=== PATIENT | male | born 2005 | race Caucasian/White ===

== ENCOUNTER 2025-02-18 16:57 | Emergency (ER) | payer BC, SELFPAY ==
[2025-02-18 17:00] VITALS: BP 123/80
--- NOTE | 2025-02-18 18:51 | ED.GENMED ---
History of Present Illness
General
Chief Complaint: Suicidal Ideation
Time Seen by Provider: 02/18/25 17:42
History of Present Illness
History of Present Illness:
19-year-old male without known psychiatric disease presenting to the emergency department for SI. Patient reports that he has been having suicidal ideations for the past 9 months. Denies any specific plan. Notes that he went to go see a doctor
prior to arrival, sent to the ER for further assessment given admission of SI. Denies any significant social stressors. Reports history of drinking coil cleaner in the past. Denies acute medical complaint such as chest pain, difficulty breathing,
fever, or additional acute medical issues
Phy Exam
Physical Exam
Physical Exam:
General: Well-appearing, no clinical signs of dehydration, nontoxic and in no acute distress
HEENT: protecting airway
Neck: appears supple
CV: Normal heart rate
Resp: No accessory muscle use, no increased work of breathing
Abd: No distention
Extremities: No deformities, no swelling
Neuro: alert, no focal neurologic deficit
: deferred
Rectal: deferred
Psych: Normal affect
Skin: Intact
Course
Orders/Labs/Results
Orders:
Orders
02/18/25 17:06
1:1 Observation - Suicide/ Violent Behavior As Directed
Crisis Consult Urgent
Reason for Consult: SI
02/18/25 21:12
Urine Drug Abuse Screen Urgent
Date Specimen was Collected: 02/18/25
Time Specimen was Collected: 21:11
Vital Signs
Initial and Last Documented VS:
Initial Vital Signs
Temp Pulse Resp BP Pulse Ox
98.4 F 85 18 123/80 97
02/18/25 17:00 02/18/25 17:00 02/18/25 17:00 02/18/25 17:00 02/18/25 17:00
Last Documented Vital Signs
Temp Pulse Resp BP Pulse Ox
98.4 F 85 18 123/80 97
02/18/25 17:00 02/18/25 17:00 02/18/25 17:00 02/18/25 17:00 02/18/25 18:53
MDM/Problems Addressed
MDM/Problems Addressed:
19-year-old male presenting to the ER for suicidal ideation. Vital signs on arrival are normal.
On exam patient is resting comfortably, no acute distress. Patient currently on a 201 for placement for psychiatric treatment. No present indication for 302 or involuntary commitment. Crisis team working on bed search. Patient otherwise
hemodynamically stable
21:20 -patient accepted to the [facility]. Mother is going to transport patient. Feel reasonable since patient is not under 302. Stable for discharge
*Pulse Oximetry
SaO2: 97
Oxygen Mode of Delivery: Room air
Patient hypoxic: no
*Critical Care Note
Total Time (30-74mins, 75-104mins- exclusive of procedures): Not Applicable
ED Attending Note
-
Portions of this chart may have been created with voice recognition software.� Occasional wrong word or��sound alike� substitutions may have occurred due to the inherent limitations of voice recognition software.
Discharge Plan
Departure
Patient Disposition: Psych Facility
Date of Disposition: 02/18/25
Time of Disposition: 18:55
Discharge Problem:
Suicidal ideations
Instructions: Suicide Prevention
Prescriptions:
No Action
No Current Medications
0
Referrals:
Edna Rob MD [Family Provider, Pediatrics]
Activity Restrictions/Additional Instructions:
You were seen in the emergency department for suicidal ideations
You were seen by crisis and excepted to [facility] for treatment. Please go directly to the facility
Return to the emergency department for any worsening of your symptoms, or any development of chest pain, difficulty breathing, abdominal pain with persistent vomiting and inability to tolerate food or liquid by mouth (concern for dehydration),
weakness, headache or confusion, fever greater than 100.4, or any additional symptoms that are concerning to you.
Thank you for choosing [facility].
Interventions
Interventions:
*Risk Screen - Suicide Last Done: 02/18/25 17:00
*General Assessment Last Done: 02/18/25 17:00
*Neglect/Abuse Screening Last Done: 02/18/25 17:00
*ED- Fall Risk Assessment Last Done: 02/18/25 17:00
*ED COVID-19 Vaccine History Last Done: 02/18/25 17:00
*ED Influenza Vaccine History Last Done: 02/18/25 17:00
ED-Psychological Assessment Last Done: 02/18/25 17:43
Discharge Date and Time
Print Language: DIVEHI
== END 2025-02-18 21:36 ==
LOC: EMR 16:57
PROVIDERS: EMERGENCY PHYSICIAN Student in an Organized Health Care Education/Training Program; FAMILY PHYSICIAN Pediatrics
DX: R45.851 Suicidal ideations (principal)
CPT/HCPCS: 99285; 80306